=== PATIENT | male | born 1955 | race Caucasian/White ===

== ENCOUNTER → 2021-02-07 12:14 | Outpatient (CLI) | payer OTHER, SELFPAY ==
--- NOTE | 2021-02-07 12:18 | DI.MRI.S_ITS ---
PROCEDURE: MR HIP LT WO CON INDICATIONS: LEFT HIP PAIN TECHNIQUE: Noncontrast coronal T1 spin echo and STIR through the bony pelvis. Coronal and axial T2 fast spin echo with fat saturation, sagittal T1 spin echo, and oblique axial T2 fast spin echo with fat saturation through the hip. COMPARISON: None. FINDINGS: Image quality: Excellent. Bones and joints: Mild to moderate left hip joint osteoarthritic changes are seen with joint space narrowing, subchondral sclerosis and cyst formation. Mild prominence of left femoral head neck junction is seen which can be seen associated with CAM type femoral acetabular impingement. No intraosseous lesions or fractures. No avascular necrosis of the femoral heads. The visualized lower lumbar spine appears normally aligned. Tendons and ligaments: The gluteus medius and minimus tendons appear intact, without associated muscle atrophy. The nearby proximal iliotibial band also appears intact. The iliopsoas tendon appears intact, without adjacent bursal fluid collections or evidence for impingement syndrome. The origin of the hamstring tendon is intact at the ischial tuberosity, as well as the associated sacrotuberous ligament. The straight and reflected heads of the rectus femoris muscle origin appear intact, as well as the conjoint tendon. The ligamentum teres appears intact where visualized. Labrum and cartilage: Thinning of articulating cartilages in superior femoral head is seen. There is suggestion of focal superior anterior left hip labral tear. The alpha angle of the femur is within normal limits at less than 55 degrees. Soft tissues: Visualized muscles demonstrate normal bulk and internal signal. Quadratus femoris muscle demonstrates no internal edema to suggest ischiofemoral impingement. The proximal sciatic neurovascular bundle appears normal adjacent to the hamstring tendons. No free pelvic fluid. Bladder wall thickness is normal. Genitourinary structures and bowel loops appear normal where visualized. IMPRESSION: 1. Mild to moderate left hip joint osteoarthritis. No hip fracture or dislocation. No evidence of avascular necrosis. Mild prominence of superior left femoral head neck junction is seen which can be seen associated with CAM type femoral acetabular impingement. 2. Suggestion of focal superior anterior left hip labral tear. 3. No gross muscle or tendon signal abnormality. Dictated by: Lorenzo Ramirez M.D. on 02/07/2021 at 14:47 Approved by: Lorenzo Ramirez M.D. on 02/07/2021 at 14:55
== END ==
PROVIDERS: PCP Family Medicine; Referring Provider Family Medicine; Visit Provider Family Medicine
DX: M25.552 Pain in left hip (principal); M16.12 Unilateral primary osteoarthritis, left hip
CPT/HCPCS: 73721

== ENCOUNTER 2022-07-07 19:10 | Emergency (ER) | payer OTHER, SELFPAY ==
[2022-07-07 19:28] VITALS: BP 117/68; PULSE 76; RESP 17; TEMP 36.6; O2SAT 99
--- NOTE | 2022-07-07 19:30 | DI.RAD.S_ITS ---
PROCEDURE: XR CHEST 2V INDICATIONS: shortness of breath TECHNIQUE: 2 views of the chest were acquired. COMPARISON: None. FINDINGS: Surgical changes and devices: None. Lungs and pleura: There is hyperinflation of the lungs with flattening of the hemidiaphragms compatible with COPD. There are linear opacities in the right lung base likely representing atelectasis or scarring. No definite acute consolidation. No pleural effusions or pneumothorax. Mediastinum: Mediastinal contours are normal. Heart size is normal. Bones and chest wall: No suspicious bony abnormalities. Soft tissues appear unremarkable. IMPRESSION: 1. No definite acute cardiopulmonary disease. 2. Findings compatible with COPD. 3. Probable atelectasis or scarring in the right lung base. Dictated by: Damián Cooper M.D. on 07/07/2022 at 21:35 Approved by: Damián Cooper M.D. on 07/07/2022 at 21:36
[2022-07-07 19:58] LABS: Add Manual Diff / Slide Review NO; Basophils Absolute Auto 100 /uL (0-100); Basophils Percent Auto 0.5 % (0-2); Eosinophils Absolute Auto 200 /uL (0-450); Eosinophils Percent Auto 1.6 % (2-4); Hematocrit 37.9 % (41-53); Lymphocytes Absolute Auto 2700 /uL (1100-4500); Lymphocytes Percent Auto 18.2 % (25-40); Mean Corpuscular HGB Conc 34.3 % (30-36); Mean Corpuscular Hemoglobin 29.9 PG (26-34); Mean Corpuscular Volume 87.1 fL (80-100); Monocytes Absolute Auto 1200 /uL (0-900); Neutrophils Absolute Auto 10800 /uL (1500-7000); Neutrophils Percent Auto 71.7 % (50-75); Platelet Count 264 X10^3/uL (150-400); Red Blood Cell Count 4.35 X10^6/uL (4.5-5.9)
[2022-07-07 20:09] LABS: COVID19 -Nasal RAPID Negative (Negative)
[2022-07-07 20:16] LABS: Creatine Kinase 59 U/L (55-170)
[2022-07-07 20:19] LABS: Alanine Aminotransferase 11 IU/L (<50); Albumin 3.9 g/dL (3.5-5.0); Albumin Globulin Ratio 1.5 (1.0-2.8); Alkaline Phosphatase 55 U/L (38-126); Aspartate Aminotransferase 17 IU/L (17-59); BUN Creatinine Ratio 19.6 (6-22); Bilirubin Total 0.1 mg/dL (0.2-1.3); Blood Urea Nitrogen 28 mg/dL (9-20); Calcium 8.3 mg/dL (8.4-10.2); Carbon Dioxide 24 mmol/L (22-32); Chloride 104 mmol/L (98-107); Estimated Glomerular Filt Rate 53 mL/min (>60); Globulin 2.6 g/dL (1.7-4.1); Glucose 86 mg/dL (80-110); HEMOLYSIS < 15 (0-50); Potassium 4.7 mmol/L (3.4-5.1); Sodium 136 mmol/L (137-145); Total Protein 6.5 g/dL (6.3-8.2)
[2022-07-07 20:28] LABS: NT-proBNP (BNP-Adult 18+) 566 pg/mL (<125); Troponin I < 0.012 ng/mL (0.01-0.034)
[2022-07-07 21:00] VITALS: BP 122/70; PULSE 67; RESP 17; O2SAT 99
--- NOTE | 2022-07-07 21:09 | RT ---
Peak flow maneuver 360 L/min
[2022-07-07 22:00] VITALS: BP 119/66; PULSE 65; RESP 18; O2SAT 98
[2022-07-07 22:06] LABS: Adenovirus Not Detected (Not Detect); B. parapertussis Not Detected (Not Detecte); Bordetella pertussis Not Detected (Not Detecte); Chlamydophila pneumoniae Not Detected (Not Detect); Coronavirus 229E Not Detected (Not Detect); Coronavirus HKU1 Not Detected (Not Detect); Coronavirus NL 63 Not Detected (Not Detect); Coronavirus OC43 Not Detected (Not Detect); Human Metapneumovirus Not Detected (Not Detect); Human Rhinovirus/Enterovirus Not Detected (Not Detect); Influenza A Not Detected (Not Detect); Influenza B Not Detected (Not Detect); Mycoplasma pneumoniae Not Detected (Not Detect); Parainfluenza Virus 1 Not Detected (Not Detect); Parainfluenza Virus 2 Not Detected (Not Detect); Parainfluenza Virus 3 Not Detected (Not Detect); Parainfluenza Virus 4 Not Detected (Not Detect); Respiratory Syncytial Virus Not Detected (Not Detect); SARS- CoV-2 Not Detected (Not Detecte)
[2022-07-07 23:00] VITALS: BP 110/63; PULSE 62; RESP 19; O2SAT 100
[2022-07-08] VITALS (7 sets, daily range): BP systolic 98–122; BP diastolic 56–72; PULSE 59–67; RESP 14–21; O2SAT 95–100
--- NOTE | 2022-07-08 00:17 | ED_ITS ---
HPI - General Adult General Chief complaint: Shortness of Breath/Dyspnea Stated complaint: SOB Time Seen by Provider: 07/07/22 20:44 Source: patient Mode of arrival: Ambulatory History of Present Illness HPI narrative: 66-year-old gentleman who is 30 years post liver transplant originally done in [place]. Still sees his transplant team yearly and continues on tach remains but has no other significant medical problems. Comes in today with complaints of dyspnea that does not seem to be exertional. He has of cough but does not actually feel ill. He is not having myalgias, sore throat, runny nose or fevers. He does note some left-sided chest pain that he states is chronic associated with a ribbon musculoskeletal pain worse with a deep breath and does not seem to have changed with his symptoms today. He is not noticing any palpitations, headaches, acute neurologic complaints. He has not been vomiting having diarrhea or abdominal pain. Related Data Home Medications Medication Instructions Recorded Confirmed tacrolimus 0.5 mg capsule, See Rx Instructions .Route .COMPLEX 07/07/22 07/07/22 immediate-release Allergies Allergy/AdvReac Type Severity Reaction Status Date / Time No Known Drug Allergies Allergy Verified 07/07/22 19:30 Review of Systems Review of Systems Narrative: Remainder of complete review of systems is otherwise unremarkable except for that included in the HPI. Patient History Surgical History (Updated 07/08/22 @ 00:27 by Yoanna Alicea MD) History of liver transplant Social History Smoking Status: Never smoker Smoking Status: Never smoker alcohol intake frequency: other Substance Use Type: does not use Exam Initial Vital Signs Initial Vital Signs: Vital Signs Temperature 97.8 F 07/07/22 19:28 Pulse Rate 76 07/07/22 19:28 Respiratory Rate 17 07/07/22 19:28 Blood Pressure 117/68 07/07/22 19:28 Pulse Oximetry 99 07/07/22 19:28 Oxygen Delivery Method 07/07/22 19:28 General: Healthy appearing, in no acute distress. Able to give a complete and coherent history. Well-nourished well-developed HEENT: Moist mucous membranes, normal sclera with reactive pupils, Neck: No JVD, supple Respiratory: Lungs are clear to auscultation, no wheezing no rales no rhonchi. Full and symmetrical air movement Cardiac: Regular rate and rhythm no murmurs no bruits Abdomen: Soft, well-healed abdominal scars, mild diffuse tenderness without rebound or guarding, good bowel tones, no flank pain Skin: Warm and dry, no rashes Neurologic: Grossly neurologically intact with no obvious asymmetries or abnormalities Extremities: No trauma, well perfused, no lower extremity edema Psych: Cooperative, appropriate insight and affect Course Orders Ordered: ED Orders 07/07/22 19:30 XR chest 2V Stat COVID19 -Nasal RAPID/Pre-Proc Stat Complete Blood Count AUTO DIFF Stat Comprehensive Metabolic Panel Stat Lactate (Lactic Acid) Stat NT-proBNP (BNP-Adult 18+) Stat Troponin & CK Cardiac Panel Stat EKG-12 Lead Stat Measure peak expiratory flow ONCE RT Consult Eval and Treat Now 07/07/22 20:51 Respiratory Panel (Film Array) Stat 07/08/22 00:40 D Dimer Stat Procalcitonin Stat Trop I [Troponin I] Stat Vital Signs Vital signs: Vital Signs - 8 hr 07/07/22 19:28 07/07/22 21:00 07/07/22 22:00 Temperature 97.8 F Pulse Rate 76 67 65 Respiratory Rate 17 17 18 Blood Pressure 117/68 122/70 119/66 Pulse Oximetry 99 99 98 Oxygen Delivery Method Room Air Room Air Room Air 07/07/22 23:00 07/08/22 00:23 07/08/22 00:49 Temperature Pulse Rate 62 60 62 Respiratory Rate 19 18 17 Blood Pressure 110/63 116/59 L Pulse Oximetry 100 98 95 Oxygen Delivery Method Room Air Room Air 07/08/22 01:00 07/08/22 01:00 07/08/22 01:30 Temperature Pulse Rate 60 Respiratory Rate 20 Blood Pressure 112/65 101/59 L Pulse Oximetry 97 Oxygen Delivery Method Room Air 07/08/22 01:30 Temperature Pulse Rate 59 L Respiratory Rate 15 Blood Pressure Pulse Oximetry 100 Oxygen Delivery Method Medical Decision Making Lab Data Result diagrams: 07/07/22 19:30 07/07/22 19:30 Labs: Lab Results 07/07/22 07/07/22 07/07/22 Range/Units 19:30 19:30 19:30 WBC 15.0 H (4.5-11.0) X10^3/uL RBC 4.35 L (4.5-5.9) X10^6/uL Hgb 13.0 L (13.5-17.5) g/dL Hct 37.9 L (41-53) % MCV 87.1 (80-100) fL MCH 29.9 (26-34) PG MCHC 34.3 (30-36) % RDW 13.0 (11.6-14.8) % Plt Count 264 (150-400) X10^3/uL Neut % (Auto) 71.7 (50-75) % Lymph % (Auto) 18.2 L (25-40) % [place] % (Auto) 8.0 (3-14) % Eos % (Auto) 1.6 L (2-4) % Baso % (Auto) 0.5 (0-2) % Neut # (Auto) 10746 H (8686-5988) /uL Lymph # (Auto) 2700 (5638-6233) /uL [place] # (Auto) 1200 H (0-900) /uL Eos # (Auto) 200 (0-450) /uL Baso # (Auto) 100 (0-100) /uL D-Dimer (<500) ng/ml Sodium 136 L (137-145) mmol/L Potassium 4.7 (3.4-5.1) mmol/L Chloride 104 (98-107) mmol/L Carbon Dioxide 24 (22-32) mmol/L BUN 28 H (9-20) mg/dL Creatinine 1.43 H (0.66-1.25) mg/dL Estimated GFR 53 L (>60) mL/min BUN/Creatinine Ratio 19.6 (6-22) Glucose 86 (80-110) mg/dL Lactate 1.0 (0.7-2.1) mmol/L Calcium 8.3 L (8.4-10.2) mg/dL Total Bilirubin 0.1 L (0.2-1.3) mg/dL AST 17 (17-59) IU/L ALT 11 (<50) IU/L Alkaline Phosphatase 55 (38-126) U/L Total Creatine Kinase (55-170) U/L CK-MB (CK-2) CK-MB (CK-2) Rel Index Troponin I (0.01-0.034) ng/mL NT-Pro-B Natriuret Pep (<125) pg/mL Total Protein 6.5 (6.3-8.2) g/dL Albumin 3.9 (3.5-5.0) g/dL Globulin 2.6 (1.7-4.1) g/dL Albumin/Globulin Ratio 1.5 (1.0-2.8) Procalcitonin (<0.5) ng/mL Chlamy pneumoniae PCR (Not Detect) Adenovirus (PCR) (Not Detect) B. pertussis DNA (PCR) (Not Detecte) B.parapertussis DNA PCR (Not Detecte) Coronavirus OC43 (PCR) (Not Detect) Coronavirus HKU1 (PCR) (Not Detect) Coronavirus 229E (PCR) (Not Detect) SARS-CoV-2 (PCR) (Negative) Coronavirus NL63 (PCR) (Not Detect) Human Metapneumovir PCR (Not Detect) Influenza Type A (PCR) (Not Detect) Influenza Type B (PCR) (Not Detect) M. pneumoniae (PCR) (Not Detect) Parainfluenza 1 (PCR) (Not Detect) Parainfluenza 2 (PCR) (Not Detect) Parainfluenza 3 (PCR) (Not Detect) Parainfluenza 4 (PCR) (Not Detect) RSV (PCR) (Not Detect) Entero/Rhino (PCR) (Not Detect) 07/07/22 07/07/22 07/07/22 Range/Units 19:30 19:30 20:51 WBC (4.5-11.0) X10^3/uL RBC (4.5-5.9) X10^6/uL Hgb (13.5-17.5) g/dL Hct (41-53) % MCV (80-100) fL MCH (26-34) PG MCHC (30-36) % RDW (11.6-14.8) % Plt Count (150-400) X10^3/uL Neut % (Auto) (50-75) % Lymph % (Auto) (25-40) % [place] % (Auto) (3-14) % Eos % (Auto) (2-4) % Baso % (Auto) (0-2) % Neut # (Auto) (5471-2715) /uL Lymph # (Auto) (1688-5034) /uL [place] # (Auto) (0-900) /uL Eos # (Auto) (0-450) /uL Baso # (Auto) (0-100) /uL D-Dimer (<500) ng/ml Sodium (137-145) mmol/L Potassium (3.4-5.1) mmol/L Chloride (98-107) mmol/L Carbon Dioxide (22-32) mmol/L BUN (9-20) mg/dL Creatinine (0.66-1.25) mg/dL Estimated GFR (>60) mL/min BUN/Creatinine Ratio (6-22) Glucose (80-110) mg/dL Lactate (0.7-2.1) mmol/L Calcium (8.4-10.2) mg/dL Total Bilirubin (0.2-1.3) mg/dL AST (17-59) IU/L ALT (<50) IU/L Alkaline Phosphatase (38-126) U/L Total Creatine Kinase 59 (55-170) U/L CK-MB (CK-2) TNP CK-MB (CK-2) Rel Index TNP Troponin I < 0.012 (0.01-0.034) ng/mL NT-Pro-B Natriuret Pep 566 H (<125) pg/mL Total Protein (6.3-8.2) g/dL Albumin (3.5-5.0) g/dL Globulin (1.7-4.1) g/dL Albumin/Globulin Ratio (1.0-2.8) Procalcitonin (<0.5) ng/mL Chlamy pneumoniae PCR Not detected (Not Detect) Adenovirus (PCR) Not detected (Not Detect) B. pertussis DNA (PCR) Not detected (Not Detecte) B.parapertussis DNA PCR Not detected (Not Detecte) Coronavirus OC43 (PCR) Not detected (Not Detect) Coronavirus HKU1 (PCR) Not detected (Not Detect) Coronavirus 229E (PCR) Not detected (Not Detect) SARS-CoV-2 (PCR) Negative Not detected (Negative) Coronavirus NL63 (PCR) Not detected (Not Detect) Human Metapneumovir PCR Not detected (Not Detect) Influenza Type A (PCR) Not detected (Not Detect) Influenza Type B (PCR) Not detected (Not Detect) M. pneumoniae (PCR) Not detected (Not Detect) Parainfluenza 1 (PCR) Not detected (Not Detect) Parainfluenza 2 (PCR) Not detected (Not Detect) Parainfluenza 3 (PCR) Not detected (Not Detect) Parainfluenza 4 (PCR) Not detected (Not Detect) RSV (PCR) Not detected (Not Detect) Entero/Rhino (PCR) Not detected (Not Detect) 07/08/22 07/08/22 Range/Units 00:40 00:40 WBC (4.5-11.0) X10^3/uL RBC (4.5-5.9) X10^6/uL Hgb (13.5-17.5) g/dL Hct (41-53) % MCV (80-100) fL MCH (26-34) PG MCHC (30-36) % RDW (11.6-14.8) % Plt Count (150-400) X10^3/uL Neut % (Auto) (50-75) % Lymph % (Auto) (25-40) % [place] % (Auto) (3-14) % Eos % (Auto) (2-4) % Baso % (Auto) (0-2) % Neut # (Auto) (6116-3859) /uL Lymph # (Auto) (2652-4011) /uL [place] # (Auto) (0-900) /uL Eos # (Auto) (0-450) /uL Baso # (Auto) (0-100) /uL D-Dimer 259 (<500) ng/ml Sodium (137-145) mmol/L Potassium (3.4-5.1) mmol/L Chloride (98-107) mmol/L Carbon Dioxide (22-32) mmol/L BUN (9-20) mg/dL Creatinine (0.66-1.25) mg/dL Estimated GFR (>60) mL/min BUN/Creatinine Ratio (6-22) Glucose (80-110) mg/dL Lactate (0.7-2.1) mmol/L Calcium (8.4-10.2) mg/dL Total Bilirubin (0.2-1.3) mg/dL AST (17-59) IU/L ALT (<50) IU/L Alkaline Phosphatase (38-126) U/L Total Creatine Kinase (55-170) U/L CK-MB (CK-2) CK-MB (CK-2) Rel Index Troponin I < 0.012 (0.01-0.034) ng/mL NT-Pro-B Natriuret Pep (<125) pg/mL Total Protein (6.3-8.2) g/dL Albumin (3.5-5.0) g/dL Globulin (1.7-4.1) g/dL Albumin/Globulin Ratio (1.0-2.8) Procalcitonin 0.07 (<0.5) ng/mL Chlamy pneumoniae PCR (Not Detect) Adenovirus (PCR) (Not Detect) B. pertussis DNA (PCR) (Not Detecte) B.parapertussis DNA PCR (Not Detecte) Coronavirus OC43 (PCR) (Not Detect) Coronavirus HKU1 (PCR) (Not Detect) Coronavirus 229E (PCR) (Not Detect) SARS-CoV-2 (PCR) (Negative) Coronavirus NL63 (PCR) (Not Detect) Human Metapneumovir PCR (Not Detect) Influenza Type A (PCR) (Not Detect) Influenza Type B (PCR) (Not Detect) M. pneumoniae (PCR) (Not Detect) Parainfluenza 1 (PCR) (Not Detect) Parainfluenza 2 (PCR) (Not Detect) Parainfluenza 3 (PCR) (Not Detect) Parainfluenza 4 (PCR) (Not Detect) RSV (PCR) (Not Detect) Entero/Rhino (PCR) (Not Detect) Imaging Data Chest x-ray: Radiologist's Impression: FINDINGS:? ? Surgical changes and devices:? None.? ? Lungs and pleura:? There is hyperinflation of the lungs with flattening of the hemidiaphragms compatible with COPD.? There are linear opacities in the right lung base likely representing atelectasis or scarring.? No definite acute consolidation.? No pleural effusions or pneumothorax.? ? Mediastinum:? Mediastinal contours are normal.? Heart size is normal.? ? Bones and chest wall:? No suspicious bony abnormalities.? Soft tissues appear unremarkable.? ? IMPRESSION:? ? 1. No definite acute cardiopulmonary disease. ? 2. Findings compatible with COPD. ? 3. Probable atelectasis or scarring in the right lung base. ? ? Dictated by: Damián Cooper M.D. on 07/07/2022 at 21:35 ? ? ECG Data Interpretation: Sinus rhythm at a rate of 69 Normal intervals, normal axis No acute ischemic changes MDM Narrative Medical decision making narrative: 66-year-old gentle with acute onset of shortness of breath around 1:00 p.m. this afternoon. Initial workup is entirely reassuring as is clinical exam. No evidence of overt infection, viral pneumonia, abnormal chest x-ray to suggest pneumothorax, cardiomegaly, congestive heart failure, bacterial pneumonia. He has a mildly elevated white blood cell count with normal differential. Oxygen saturations are in the upper 90s on room air, he is not tachypneic or tachycardic. Pulmonary embolism would be less likely. ProBNP is minimally elevated however he has no clinical signs or symptoms of congestive heart failure on physical exam the absence of any crackles, JVD, lower extremity edema. Again no congestive overload appreciated on chest x-ray. With initial troponin and EKG unremarkable would like to repeat these as well as a D-dimer for reassurance. Will re-evaluate. Repeat troponin is unremarkable. D-dimer is negative, patient is re-evaluated he is no longer having the shallow breathing or concern for breathing that he initially presented with and is feeling significantly improved. At this time I find no reason for hospitalization or continued workup. Specifically no evidence for bacterial or viral infection. No acute coronary syndrome, congestive heart failure, pulmonary embolism, enlarged cardiac silhouette to suggest concern for cardiomyopathy liver enzymes are reassuring. At this point I believe he is safe for home discharge. I have encouraged him to follow-up with his primary care physician he continues to have dyspnea he may benefit from an outpatient echocardiogram to see if there is any component of mild congestive heart failure. At this point reassurance is given, he is hemodynamically stable no longer having any dyspnea afebrile and safe for home discharge Discharge Plan Departure Patient Disposition: Home Clinical Impression: Dyspnea Instructions: DI for Shortness of Breath Activity Restrictions/Additional Instructions: Thank you for coming in today Your workup is very reassuring. With your history of a liver transplant I wanted to be extraordinarily thorough in ruling out reasons for your shortness of breath. There is no evidence of bacterial or viral respiratory infection. No collapsed lung, no pneumothorax. No evidence of congestive heart failure, heart attack or heart attack like syndrome. You are not anemic and your kidney function and liver enzymes are all quite reassuring At this time, I do not have a full explanation for the symptoms you are having earlier today however I am reassured with your workup, your exam and the fact that you are feeling better prior to discharge I would recommend that you follow-up with your primary care physician later this week. If he continued to have episodes of feeling short of breath, and echocardiogram may be helpful in sorting through some of the other possibilities. If you find that you are getting worse or develop any new symptoms, please feel free to return to the emergency department for further evaluation. Prescriptions: No Action tacrolimus 0.5 mg capsule See Rx Instructions .ROUTE .COMPLEX Rx Instructions: TAKE 1 CAPSULE BY MOUTH EVERY MORNING AND 2 CAPSULES BY MOUTH AT BEDTIME. Referrals: Iron Renya MD [Primary Care Provider] -
[2022-07-08 01:30] LABS: Troponin I < 0.012 ng/mL (0.01-0.034)
[2022-07-08 01:31] LABS: D Dimer 259 ng/ml (<500)
[2022-07-08 01:35] LABS: Procalcitonin 0.07 ng/mL (<0.5)
== END 2022-07-08 03:02 | disposition home or self-care (01) ==
PROVIDERS: Emergency Provider Emergency Medicine; PCP Family Medicine
DX: R06.00 Dyspnea, unspecified (principal); Z94.4 Liver transplant status; Z20.822 Contact with and (suspected) exposure to COVID-19
CPT/HCPCS: 36415; 71046; 80053; 82550; 83605; 83880; 84145; 84484; 85025; 85379; 87633; 87635; 93005; 99283; 99284; C9803